=== PATIENT | female | born 1980 ===

== ENCOUNTER 2019-03-04 17:32 | Emergency (ER) | payer SELFPAY ==
[~2019-03-04] VITALS: Ht 149.9 cm; Wt 57.7 kg
[2019-03-04 18:12] VITALS: BP 123/76
== END 2019-03-04 19:08 | disposition left against medical advice (07) ==
LOC: EMS 17:32
DX: Z53.21 Procedure and treatment not carried out due to patient leaving prior to being seen by health care provider (principal)